=== PATIENT | female | born 1985 | race Caucasian/White ===

== ENCOUNTER 2022-09-16 12:15 | Emergency (ER) | payer MEDICAID ==
[~2022-09-16] VITALS: Ht 157.5 cm; Wt 165.0 kg
[2022-09-16] MEDS ORDERED: ONDANSETRON HCL 4MG/2ML INJ IV STA (12:28)
[2022-09-16] MEDS ORDERED: KETOROLAC 30MG/ML VIAL IV STA (12:28)
[2022-09-16] MEDS ORDERED: SODIUM CHLORIDE 0.9% 1,000 ML IV ONE (12:30)
[2022-09-16 13:45] LABS: BASOPHILS % 0.8 % (0.0-2.0); HEMATOCRIT. 46.8 % (36.0-48.0); HEMOGLOBIN. 15.1 g/dL (12.0-16.0); LYMPHOCYTES % 14.6 % (20.0-50.0); MEAN CORPUSCULAR HEMOGLOBIN 28.9 pg (28.0-32.0); MEAN CORPUSCULAR VOLUME 89.8 fL (81.0-99.0); MONOCYTES % 10.7 % (2.0-8.0); NEUTROPHILS % 72.9 % (40.0-76.0); PLATELET 172 x1000/uL (130-400); RED BLOOD CELL COUNT 5.22 mill/uL (4.2-5.4); RED CELL DISTRIBUTION WIDTH 19.2 % (11.6-14.6)
[2022-09-16 13:50] LABS: CHLORIDE 105 mEq/L (98-107)
[2022-09-16 14:41] LABS: HCG SCREEN NEGATIVE
[2022-09-16] MEDS ORDERED: ONDA4TAB50 MT (15:57)
[2022-09-16] MEDS ORDERED: ONDANSETRON 4MG ODT PO ONE (16:00)
[2022-09-16 16:30] VITALS: BP 135/81
== END 2022-09-16 16:32 | disposition home or self-care (01) ==
LOC: ER 12:15
DX: R10.13 Epigastric pain (principal); R11.2 Nausea with vomiting, unspecified; J45.909 Unspecified asthma, uncomplicated; Z98.84 Bariatric surgery status
CPT/HCPCS: 36415; 74176; 80053; 83690; 84703; 85025; 93005; 96361; 96374; 96375; 99285; J1885; J2405; J7030; Q0162